=== PATIENT | female | born 1995 | race Asian ===

== ENCOUNTER 2020-02-11 23:54 | Emergency (ER) | payer OTHER, SELFPAY ==
[~2020-02-11] VITALS: Ht 152.4 cm; Wt 47.6 kg
[2020-02-12 00:18] VITALS: BP 138/80
--- NOTE | 2020-02-12 00:18 | NUR ---
PT IN TENT WAITING
--- NOTE | 2020-02-12 00:45 | NUR ---
24 Y/O FEMALE C/O X 5 DAYS PT HAVING DIFFICULTY BREATHING; IN TRIAGE RR 16 AND O2 SAT 99% ROOM AIR; PT TALKING IN FULL SENTENCES AND DOES NOT APPEAR TO HAVE LABORED BREATHING; +DIARRHEA; -N/V/FEVER/CP PMH: PT DENIES NKA
--- NOTE | 2020-02-12 01:25 | NUR ---
COVID ORAL SWAB DONE
[2020-02-12 01:30] VITALS: BP 138/80
--- NOTE | 2020-02-12 01:30 | NUR ---
Patient discharged with v/s stable. Written and verbal after care instructions given and explained. Patient verbalized understanding. Ambulatory with steady gait. All questions addressed prior to discharge. Advised to follow up with PMD.
== END 2020-02-12 01:30 | disposition home or self-care (01) ==
LOC: MED 23:54 → EEVIPCON 23:54 → MED 02-12 01:30
DX: R06.02 Shortness of breath (principal); R19.7 Diarrhea, unspecified; Z20.828 Contact with and (suspected) exposure to other viral communicable diseases
CPT/HCPCS: 99283; U0003